=== PATIENT | male | born 1990 | race Caucasian/White ===

== ENCOUNTER 2017-05-20 10:32 | Emergency (ER) | payer SELFPAY ==
[~2017-05-20] VITALS: Ht 170.2 cm; Wt 78.6 kg
[2017-05-20 10:44] VITALS: TEMP 37.1; Ht 170.2 cm; Wt 78.6 kg
[2017-05-20] MEDS ORDERED: PRED20TA PO (11:11)
[2017-05-20 11:30] VITALS: BP 112/76; PULSE 97; O2SAT 98
--- NOTE | 2017-05-20 16:07 | EMERGENCY ROOM VISIT NOTE ---
History Report prepared by Erasto: Navya Glez Under the Supervision of: Dr. Rick Saenz M.D. First contact with patient: 11:00 Chief Complaint: ALLERGIC REACTION Stated Complaint: HIVES Nursing Triage Summary: triage note: pt reports "i have been having an allergic reaction to something since monday and today i have hives on my face." pt denies any shortness of breath, difficulty swallowing. pt reports taking no benedryl today. History of Present Illness The patient is a 27 year old male who presents to the Emergency Room with complaints of worsening hives starting 3 days ago. The hives started on his arms and then spread to his legs and feet and the rest of his body. Today he woke up and found that the hives had spread to his face. He has tried taking Benadryl and Claritin to no relief. He was recommended a steroid nasal spray today by the pharmacist which he tried to no relief. He is itchy. He has some possible lip swelling. He denies any fever. He denies any symptoms of hay fever like rhinorrhea, sneezing, or congestion. He denies any tongue swelling or throat swelling. He notes that 2 weeks ago he had poison amanuel on his left arm which resolved. The hives started afterwards. He has cats in the household which have been there for a long time. He denies having any unusual foods or seafood. He might have had some peanuts, but has not had any trouble with peanuts before. He denies any new medications recently. Source of History: patient Onset: 3 days ago Position: other (skin) Quality: other (hives) Timing: worsening Associated Symptoms: No fevers Note: Pt reports lip swelling. Pt denies rhinorrhea, sneezing, congestion, tongue swelling, throat swelling. Review of Systems See HPI for pertinent positives & negatives. A total of 10 systems reviewed and were otherwise negative. Past Medical & Surgical Medical Problems: (1) Hernia Family History Cancer Social History Smoking Status: Current Every Day Smoker Alcohol Use: occasionally Marital Status: single Current/Historical Medications Scheduled Prednisone (Prednisone), 0 PO DAILY Allergies Coded Allergies: Clindamycin (Verified Allergy, Unknown, rash, 05/20/17) patient Physical Exam Vital Signs Date Time Temp Pulse Resp B/P (MAP) Pulse Ox O2 Delivery O2 Flow Rate FiO2 05/20/17 11:30 97 17 112/76 98 8/19/17 10:44 37.1 100 18 118/72 99 Room Air 05/20/17 10:44 98 Room Air Physical Exam Constitutional: Vital signs reviewed. Eyes: Pupils are equal round reactive to light. Conjunctiva are noninjected. ENT: Pharynx is clear without erythema or exudate. Mucous membranes are moist. Neck supple without meningeal signs. No glottic swelling or uvular swelling. Respiratory: Clear to auscultation bilaterally. Breath sounds are equal bilaterally. No wheezing or stridor. Cardiovascular: Regular rate and rhythm. No rubs or gallops. GI: Soft, nondistended and nontender. Bowel sounds are present. Musculoskeletal: No peripheral edema. No lower extremity tenderness. Integumentary: Diffuse urticaria throughout the body without any specific distribution. No vesicles or bullae. Neurological: The patient is awake and alert. No focal deficits. Psychiatric: Normal affect. Medical Decision & Procedures Medications Administered Medications (Trade) Dose Ordered Sig/Kana Route Start Time Stop Time Status Last Admin Dose Admin Prednisone (PredniSONE TAB) 60 mg NOW STAT PO 05/20/17 11:10 05/20/17 11:11 DC 05/20/17 11:22 60 MG ED Course 1103: The patient was evaluated in room B7. A complete history and physical exam was performed. 1110: Prednisone 60 mg PO. 1115: I reevaluated the patient. I discussed tonight's findings with him. He verbalized agreement of the treatment plan. He was discharged home. Medical Decision This is a 27-year-old male who presents with a rash. Differential diagnosis includes urticaria, allergic reaction, erythema multiforme, environmental allergy. I did perform a limited focused review of portions of the patient's old chart on the electronic medical record. The patient has had no recent pertinent visits to this hospital. I did evaluate the patient as noted above. The patient is presenting with what appears to be diffusely urticaria to his body. No allergen is identified. He has no airway involvement or angioedema. I did recommend a course of steroids as well as follow up with an manager pediatric. Also also recommended that he continue antihistamines. He was discharged with a prescription for prednisone. He was discharged in good condition with return instructions as outlined below. Medication Reconcilliation Current Medication List: was personally reviewed by me Blood Pressure Screening Patient's blood pressure: Normal blood pressure Blood pressure disposition: Did not require urgent referral Impression Primary Impression: Urticaria Scribe Attestation The scribe's documentation has been prepared under my direct and personally reviewed by me in its entirety. I confirm that the note above accurately reflects all work, treatment, procedures, and medical decision making performed by me. Departure Information Dispostion Home / Self-Care Prescriptions Prednisone (Prednisone) 20 Mg Tab 0 PO DAILY, #18 TAB 3 DAILY FOR 3 DAYS, THEN 2 DAILY FOR 3 DAYS, THEN 1 DAILY FOR 3 DAYS. Prov: Rick Saenz M.D. 05/20/17 Referrals No Doctor, Assigned (PCP) Forms HOME CARE DOCUMENTATION FORM, IMPORTANT VISIT INFORMATION Patient Instructions ED Urticaria, My [facility] Additional Instructions You have been examined and treated today on an emergency basis only. This is not a substitute for, or an effort to provide, complete comprehensive medical care. It is impossible to recognize and treat all injuries or illnesses in a single emergency department visit. It is therefore important that you follow up closely with an manager pediatric for skin testing. Call as soon as possible for an appointment. Return for worsening symptoms or if you develop fever, trouble breathing, swelling to your tongue or throat or any other concerning symptoms. Continue antihistamines at home. Start prednisone tomorrow as you are given your first dose in the ED.
== END 2017-05-20 11:25 | disposition home or self-care (01) ==
LOC: C.EDB 10:33
DX: L50.9 Urticaria, unspecified (principal); F17.200 Nicotine dependence, unspecified, uncomplicated; Z88.8 Allergy status to other drugs, medicaments and biological substances; Z80.9 Family history of malignant neoplasm, unspecified

== ENCOUNTER 2024-09-02 15:32 | Inpatient (IN) ==
[2024-09-02 16:23] LABS: Basophils # (auto) 0.06 K/uL (0.00-0.20); Basophils % (auto) 0.9 %; Eosinophils # (auto) 0.06 K/uL (0.00-0.50); Eosinophils % (auto) 0.9 %; Hematocrit (blood only) 45.4 % (42.0-52.0); Hemoglobin 15.9 g/dl (14.0-18.0); Immature Granulocytes # (auto) 0.02 K/uL (0.01-0.20); Immature Granulocytes % (auto) 0.3 %; Lymphocytes # (auto) 1.38 K/uL (1.20-3.40); Lymphocytes % (auto) 20.2 %; Mean Corpuscular Hemoglobin 30.8 pg (25.0-34.0); Mean Corpuscular Volume 87.8 fL (80.0-100.0); Mean Platelet Volume 9.4 fL (9.4-12.4); Monocytes % (auto) 10.2 %; Neutrophils # (auto) 4.62 K/uL (1.40-6.50); Neutrophils % (auto) 67.5 %; Platelet Count 228 K/uL (130-400); RDW Coefficient of Variation 12.5 % (11.5-14.5); RDW Standard Deviation 40.4 fL (36.4-46.3); Red Blood Count 5.17 M/uL (4.70-6.10); White Blood Count 6.84 K/ul (4.8-10.8)
[2024-09-02] MEDS: LIDOCAINE 2% LOCAL 50 ML VIAL ONE (16:29)
[2024-09-02 16:48] LABS: Albumin Level 5.1 gm/dl (3.4-5.0); Bilirubin,Total 0.8 mg/dl (0.2-1.0); Calcium 10.2 mg/dl (8.6-10.3); Potassium 3.8 mmol/L (3.5-5.1)
[2024-09-02 16:54] LABS: Albumin Globulin Ratio 1.9 (0.9-2); BUN Creatinine Ratio 13.7 (10-20); Creatinine Clr Calc Pharmacy 96.3 ml/min; Globulin 2.7 gm/dl (2.5-4.0); Total Protein 7.8 gm/dl (6.0-8.3)
[2024-09-02] MEDS: fentaNYL citrate PF 100 MCG/2 ML VIAL IV STA (17:00)
--- NOTE | 2024-09-02 17:21 | History & Physical Report ---
Date of Service September 02, 2024 Assessment & Plan (1) Pneumothorax: Plan: Patient with no significant PMHx - presented with dyspnea on exertion and chest pain x 4 days Etiology unclear CXR showed large right pneumothorax with associated right lung collapse and mild leftward mediastinal shift, RUL opacity with unclear etiology (pulm contusion vs infectious vs loculated effusion) Chest tube placed in ED by Dr. Davis - 10 cmH2O suction Consult pulmonology - defer repeat imaging to pulm, will likely need chest CT - outpatient PFTs and exhaled nitric oxide testing Pain management prn - Tylenol, Toradol, oxycodone Wean O2 as tolerated - maintain saturations above 95% Admit to PCU - will defer antibiotic use at this time given afebrile, denies upper respiratory symptoms, no leukocytosis (2) Dyspnea: Plan: Secondary to above improving - see tx above (3) Current cannabis vaping on some days: Plan: smokes cannabis 1-2 days per months encourage smoking cessation Plan VTE ppx: SCDs Diet: regular Code status: full code Dispo: PCU Admission and Anticipated Discharge Date Admission Date: 09/02/24 History of Present Illness Chief Complaint: abnormal labs Primary Care Provider: NO PCP Patient is a 34-year-old male with no significant past medical history. He presents today from urgent care due to an abnormal diagnostic test, CXR showing pneumothorax. He stated that since Thanksgi he has had fatigue, cough, dyspnea on exertion, dizziness, and feels like his "chest is on fire". He has been taking ibuprofen for the chest pain. He stated that the pain was on the right side and moved midsternally. He also had right arm numbness a few days ago, but that has since subsided. When he went to work today, he felt he could not do anything because the shortness of breath was so severe. The patient stated that he would have episodes of shortness of breath on exertion, which then caused him to have a cough and fatigue. He stated that his fiance and her child have both been diagnosed with pneumonia recently. Patient denies fevers, rhinorrhea, sore throat, abdominal pain, nausea, vomiting, diarrhea, constipation. He denies previous tobacco history, occasionally smokes cannabis 1-2 times per month. He denies previous pulmonary conditions, denies cystic fibrosis, asthma, COPD. He denies past history of DM, cancer, previous VTE, arrhythmias. He does not take any medications at home other than a daily multivitamin. He does not use oxygen at baseline. Allergies Allergy/AdvReac Type Severity Reaction Status Date / Time clindamycin Allergy Unknown rash Verified 09/02/24 18:44 Home Medications Medication Instructions Recorded Confirmed Type ibuprofen 200 mg tablet 200 mg PO Q6H PRN Pain/Fever 09/02/24 09/02/24 History multivitamin 1 tab PO DAILY 09/02/24 09/02/24 History Past Med/Surg History Problem List (Updated 09/02/24 @ 18:02 by Henrietta Rosa PA-C) Dyspnea Chest x-ray abnormality Current cannabis vaping on some days Spontaneous pneumothorax Shortness of breath (Acute) Pneumothorax (Acute) Urticaria (Acute) Surgical History H/O hernia repair Social History Smoking Status: Current some day smoker Tobacco Type: E-cigarettes / Vaping Second Hand Exposure: No; Do You Dip or Chew Tobacco: No; Hx Alcohol Use: Yes Hx Substance Use: Yes Preferred Language: Luxembourgish Communication Ability: Effective Block Breaker Required: No Beliefs That Will Affect Care: None Current Living Situation: Significant Other Current Living Situation Comment: with fiance Other Information That Helps Us Care for You: No Feels Safe at Home: Yes Safety Concerns: Feels Safe At This Time Assistive Devices: None Review of Systems Review of Systems: see HPI Physical Exam Physical Exam: The patient is awake, alert and oriented 3, well developed and well nourished, normocephalic and atraumatic, in no acute distress. Non-toxic appearing. HEENT- EOMI, mucous membranes moist. Hearing grossly intact. Heart- normal S1 and S2. No murmurs, rubs or gallops. Lungs- decreased bilaterally. Chest tube in place. No respiratory distress. 6L O2 via nasal canula. Abdomen- normal bowel sounds and soft. No ascites noted. Non-tender. Extremities- no clubbing, cyanosis, or edema. Rheumatologic- normal range of motion. Psychiatric- normal affect. Results & Data Results & Data Vital Signs (Past 12 Hours) Vital Signs Temp Pulse Pulse Resp BP BP Pulse Ox 09/02/24 16:40 100 09/02/24 16:31 79 20 131/94 100 09/02/24 16:27 90 09/02/24 16:08 85 26 H 91 09/02/24 15:52 93 H 21 145/104 H 91 09/02/24 15:34 37 C 104 H 22 134/85 91 O2 Del Method O2 Flow Rate 09/02/24 16:40 Nasal Cannula, Non-rebreather 15 09/02/24 16:31 Non-rebreather 15 09/02/24 16:27 Room Air, Non-rebreather 0 09/02/24 16:08 Room Air 09/02/24 15:52 Room Air 09/02/24 15:34 Room Air Code Status & VTE Plan Code Status full code VTE Prophylaxis Plan VTE Prophylaxis will be ordered: Yes Supervising Physician Co-Signing Physician Notes I personally saw and examined the patient. I independently reviewed the labs, EKG, imaging, problem list, medication list, past medical history and family history. I verified all damian points and agree with Henrietta Rosa PA-C with the following exceptions and/or additions: 34 year old presents to the ER with known pneumothorax. Pulmonology already performed tube thoracostomy when seen. Pain on inspiration and movement. O/E HS RRR, no murmurs, posterior crackles on right side, no wheezing, Abdo SNT A/P Pneumothorax - appreciate pulmonology management of this, repeat imaging per pulmonology, pain medications - acetaminophen 1st line, toradol 2nd line, oxycodone 3rd line, morphine 4th line or unable to take PO meds Abnormal CXR - concerning opacity in right lung, consider CT chest, suspect most likely compressed lung, no need for antibiotics at this time PG Care Time/CCT Total # of Minutes Spent Total Time Spent with Patient: Total time spent is greater than 50% in coordination of care (as documented) at patient's floor/unit and/or counseling patient: Coding Level of Care Code 53884 INT INP/OBS CARE 2/55MIN Diagnoses Pneumothorax J93.9 Dyspnea R06.00 Current cannabis vaping on some days F12.90
[2024-09-02] MEDS: ACETAMINOPHEN 325 MG TAB PO STA (17:28)
[2024-09-02] MEDS: KETOROLAC TROMETHAMINE 15 MG/ML VIAL IV ONE (17:29)
--- NOTE | 2024-09-02 17:34 | XRay Report ---
INDICATION: Chest tube. TECHNIQUE: Frontal radiograph of the chest. COMPARISON: None provided. FINDINGS/IMPRESSION: The cardiomediastinal silhouette and pulmonary vasculature appear within normal limits. Right upper lobe opacity. Subsegmental atelectasis in the left lower lobe. No pleural effusion. No acute osseous abnormality evident. Small right apical pneumothorax, less than 15 % volume. Right-sided chest tube overlies the right upper medial thorax. Electronically signed by Hector Beckford 09-02-2024 5:33 PM
--- NOTE | 2024-09-02 17:40 | Emergency Department Note ---
Impression & Plan Pneumothorax, Shortness of breath ED Provider Note NAME: SHIRA PAULINO AGE: 34 SEX: M : 1990 ARRIVES VIA: Walk-In INFORMANT: Patient ED PROVIDER(S): Jaspreet Thrasher DO CHIEF COMPLAINT: chest pain HPI: Patient is a 34-year-old male who presents to the ER for right-sided chest pain which started on Thanksgiving. He admits to shortness of breath. He was seen at urgent care and referred in due to a pneumothorax. He denies any belly pain nausea vomiting or diarrhea. He notes shortness of breath got worse today although in the morning he was feeling the best that he has felt over the past couple days. He denies any recent trauma. No fevers. ADDITIONAL HISTORY OBTAINED: Per HPI Chronic Medical/Social Conditions Affecting Care: Per HPI PAST MEDICAL HISTORY:See Below PAST SURGICAL HISTORY:See Below FAMILY HISTORY:See Below SOCIAL HISTORY:See Below HOME MEDICATIONS:See Below ALLERGIES:See Below VITALS:See Below PHYSICAL EXAMINATION: GENERAL: Sitting up in bed, alert, well appearing, well nourished, no distress, non-toxic EYE EXAM: normal conjunctiva. OROPHARYNX: mucous membranes are moist LUNGS: Diminished breath sounds on the right. Normal chest wall mechanics HEART: no murmurs, S1 normal and S2 normal ABDOMEN: abdomen soft, non-tender, normo-active bowel sounds, no masses, no rebound or guarding. UPPER EXTREMITIES: upper extremities are grossly normal. LOWER EXTREMITIES: No pitting edema. NEURO EXAM: Normal sensorium, cranial nerves II-XII grossly intact, normal speech, no gross weakness of arms, no gross weakness of legs. MEDICAL DECISION MAKING: Patient is a 34-year-old male who presents ER for the above-stated complaint. External records were reviewed in regards to a chest x-ray performed earlier today at [facility] which showed a large right-sided pneumothorax. I discussed the case with pulmonology who reviewed the images and agreed that he needed a chest tube. They elected to place a chest tube. Please see their notes for further details. Patient was placed on a nonrebreather after initial evaluation due to the large right-sided pneumothorax. Patient was discussed with the hospitalist after placement of chest tube and chest x-ray which shows significant improvement of the pneumothorax. Consults/Care Managements Discussions: Per [facility] Triage Nursing notes reviewed. Limited review of prior medical records performed Vital Signs: reviewed and remarkable for no significant abnormalities Differential diagnosis: Cardiac ischemia, aortic dissection, pulmonary embolism, pneumothorax, pneumonia, pericarditis, myocarditis, esophageal rupture, GERD, cholecystitis, pancreatitis, musculoskeletal, as well as other pathologies. ER treatment provided: See below Diagnostics interpreted by me include EKG and cardiac monitoring as listed below: -Cardiac Monitoring: An order was placed for continuous cardiac monitoring. The monitor shows a rate of 70 with sinus rhythm. -ECG: none -Laboratory studies:Interpreted by me as stated above in MDM and shown below. Imaging studies: Xrays: As interpreted by me: Portable AP upright 1 view of the chest shows chest tube located in right side chest CTs show: none Procedures:none Critical Care: I have personally spent 35 minutes of critical care time in the direct management of this patient. This includes bedside care, interpretation of diagnostic studies, and testing, discussion with consultants, patient, and family members, and other required patient management activities. This 35 minutes is in excess of all separately billable procedures. Past Med/Surg History Problem List (Updated 09/02/24 @ 17:40 by Jaspreet Thrasher DO) Shortness of breath (Acute) Pneumothorax (Acute) Urticaria (Acute) Surgical History (Updated 09/02/24 @ 12:08 by Estelle Helm LPN) H/O hernia repair Social History (Updated 09/02/24 @ 12:08 by Estelle Helm LPN) Smoking Status: Former smoker Preferred Language: Zimbabwean Feels Safe at Home: Yes Allergies Allergies Allergy/AdvReac Type Severity Reaction Status Date / Time clindamycin Allergy Unknown rash Verified 09/02/24 12:07 Home Meds Home Medications Medication Instructions Recorded Confirmed No Known Home Medications 09/02/24 09/02/24 Results & Data (ED) Vital Signs Vital Signs - 24 hr 09/02/24 15:34 09/02/24 15:52 09/02/24 16:08 Temperature 37 C Temperature Source Skin Pulse Rate 104 H 85 Pulse Rate [Apical] 93 H Pulse Rhythm Regular Pulse Rhythm [Apical] Pulse Strength [Apical] Respiratory Rate 22 21 26 H Respiratory Effort / Characteristics Short of Breath Non-Labored Spontaneous Respiratory Depth Normal Normal Respiratory Pattern Regular Blood Pressure 134/85 Blood Pressure [Right Arm] 145/104 H Blood Pressure Mean 101 Blood Pressure Mean [Right Arm] 117 Blood Pressure Position [Right Arm] Pulse Oximetry 91 91 91 Oxygen Delivery Method Room Air Room Air Room Air Oxygen Flow Rate Sepsis Recent Fever Within 48 Hours No Sepsis New/Unexplained Change in Mental Status N/A Sepsis Action Taken by Nursing No Action Required Oxygen Flow Rate - Titration Pulse Oximetry Post Tiitration 09/02/24 16:27 09/02/24 16:31 09/02/24 16:40 Temperature Temperature Source Pulse Rate Pulse Rate [Apical] 79 Pulse Rhythm Pulse Rhythm [Apical] Regular Pulse Strength [Apical] Normal Respiratory Rate 20 Respiratory Effort / Characteristics Non-Labored Respiratory Depth Normal Respiratory Pattern Regular Blood Pressure Blood Pressure [Right Arm] 131/94 Blood Pressure Mean Blood Pressure Mean [Right Arm] 106 Blood Pressure Position [Right Arm] Lying Pulse Oximetry 90 100 100 Oxygen Delivery Method Room Air Non-rebreather Non-rebreather Nasal Cannula Non-rebreather Oxygen Flow Rate 0 15 15 Sepsis Recent Fever Within 48 Hours Sepsis New/Unexplained Change in Mental Status Sepsis Action Taken by Nursing Oxygen Flow Rate - Titration 15 6 Pulse Oximetry Post Tiitration 100 100 09/02/24 17:23 Temperature Temperature Source Pulse Rate Pulse Rate [Apical] 65 Pulse Rhythm Pulse Rhythm [Apical] Regular Pulse Strength [Apical] Normal Respiratory Rate 17 Respiratory Effort / Characteristics Non-Labored Respiratory Depth Normal Respiratory Pattern Regular Blood Pressure Blood Pressure [Right Arm] 124/104 H Blood Pressure Mean Blood Pressure Mean [Right Arm] 110 Blood Pressure Position [Right Arm] Lying Pulse Oximetry 99 Oxygen Delivery Method Nasal Cannula Oxygen Flow Rate 6 Sepsis Recent Fever Within 48 Hours Sepsis New/Unexplained Change in Mental Status Sepsis Action Taken by Nursing Oxygen Flow Rate - Titration Pulse Oximetry Post Tiitration Laboratory Data 09/02/24 15:48 09/02/24 15:48 Lab Results 09/02/24 Range/Units 15:48 WBC 6.84 (4.8-10.8) K/ul RBC 5.17 (4.70-6.10) M/uL Hgb 15.9 (14.0-18.0) g/dl Hct 45.4 (42.0-52.0) % MCV 87.8 (80.0-100.0) fL MCH 30.8 (25.0-34.0) pg MCHC 35.0 (32.0-36.0) g/dL RDW Std Deviation 40.4 (36.4-46.3) fL RDW Coeff of Ed 12.5 (11.5-14.5) % Plt Count 228 (130-400) K/uL MPV 9.4 (9.4-12.4) fL Immature Gran % (Auto) 0.3 % Neut % (Auto) 67.5 % Lymph % (Auto) 20.2 % [place] % (Auto) 10.2 % Eos % (Auto) 0.9 % Baso % (Auto) 0.9 % Neut # (Auto) 4.62 (1.40-6.50) K/uL Lymph # (Auto) 1.38 (1.20-3.40) K/uL [place] # (Auto) 0.70 H (0.11-0.59) K/uL Eos # (Auto) 0.06 (0.00-0.50) K/uL Baso # (Auto) 0.06 (0.00-0.20) K/uL Immature Gran # (Auto) 0.02 (0.01-0.20) K/uL Sodium 138 (136-145) mmol/L Potassium 3.8 (3.5-5.1) mmol/L Chloride 103 (98-107) mmol/L Carbon Dioxide 26 (21-32) mmol/L Anion Gap 9 (3-11) BUN 14 (6-23) mg/dl Creatinine 1.02 (0.6-1.4) mg/dl Est Cr Clr Drug Dosing 96.3 ml/min eGFR 99.52 BUN/Creatinine Ratio 13.7 (10-20) Glucose 96 (70-99(Fasting)) mg/dl Calcium 10.2 (8.6-10.3) mg/dl Total Bilirubin 0.8 (0.2-1.0) mg/dl AST 21 (13-39) U/L ALT 17 (7-52) U/L Alkaline Phosphatase 67 (34-104) U/L Total Protein 7.8 (6.0-8.3) gm/dl Albumin 5.1 H (3.4-5.0) gm/dl Globulin 2.7 (2.5-4.0) gm/dl Albumin/Globulin Ratio 1.9 (0.9-2) Administered Medications Discontinued Medications Acetaminophen (Acetaminophen 325 Mg Tab) 650 mg PO NOW STA Stop: 09/02/24 17:25 Last Admin: 09/02/24 17:28 Dose: 650 mg Documented By: KIMBERLEY Ketorolac Tromethamine (Ketorolac Tromethamine 15 Mg/Ml Vial) 15 mg IV NOW ONE Stop: 09/02/24 17:25 Last Admin: 09/02/24 17:29 Dose: 15 mg Documented By: KIMBERLEY Lidocaine HCl (Lidocaine 2% Local 50 Ml Vial) Confirm Administered Dose 50 ml .ROUTE .STK-MED ONE Stop: 09/02/24 16:25 Last Admin: 09/02/24 16:29 Dose: Not Given Documented By: KIMBERLEY Imaging Data Radiologist's Impression: Chest X-Ray 09/02/24 17:03 INDICATION: Chest tube. TECHNIQUE: Frontal radiograph of the chest. COMPARISON: None provided. FINDINGS/IMPRESSION: The cardiomediastinal silhouette and pulmonary vasculature appear within normal limits. Right upper lobe opacity. Subsegmental atelectasis in the left lower lobe. No pleural effusion. No acute osseous abnormality evident. Small right apical pneumothorax, less than 15 % volume. Right-sided chest tube overlies the right upper medial thorax. Electronically signed by Hector Beckford 09-02-2024 5:33 PM Discharge Plan Visit Data Chief Complaint: Abnormal Labs/Diagnostic Testing Stated Complaint: COLLASPED LUNG, HAD CHEST X-RAY, SOME CHEST PAIN ED Provider: Jaspreet Thrasher Discharge Problem: Pneumothorax, Shortness of breath Forms Stand Alone Forms: My [facility] [employer] Prescriptions Prescriptions: No Action No Known Home Medications Referrals Referrals: PCP,NO [Primary Care Provider] - Discharge Problem: Pneumothorax Qualifiers: Pneumothorax type: unspecified pneumothorax Qualified Code(s): J93.9 - Pneumothorax, unspecified
[2024-09-02] MEDS: LIDOCAINE 1% LOCAL 20 ML VIAL ONE (17:41)
[2024-09-02] MEDS: fentaNYL citrate PF 100 MCG/2 ML VIAL ONE (17:44)
--- NOTE | 2024-09-02 17:50 | Pulmonary Consultation ---
Date of Consultation September 02, 2024 Assessment & Plan (1) Spontaneous pneumothorax: Etiology of spontaneous pneumothorax unclear. Will need a CT of his chest to evaluate for congenital blebs or emphysema. He does have a right upper lobe opacity of unclear etiology which may be related to pulmonary contusion versus infectious etiology or other process such as a loculated effusion. Will order follow-up chest x-ray and if still persistent, then a CT of his chest. Low threshold for antibiotics given opacity seen. Would also benefit from outpatient PFTs and exhaled nitric oxide testing to rule out obstructive lung disease. (2) Shortness of breath: Shortness of breath resolving with evacuation of the pneumothorax. Continue to wean supplemental oxygen to maintain saturations above 95%. (3) Current cannabis vaping on some days: Vaping cessation strongly encouraged. (4) Chest x-ray abnormality: Plan Pulmonary will continue to follow. Thank you for the consult. History of Present Illness Reason for Consultation: Large right-sided pneumothorax History of Present Illness 34-year-old male with no significant past medical history aside for vaping marijuana on occasion presenting to the hospital due to ongoing shortness of breath and chest pain since of last week. Patient relates that over the past 2 days his chest discomfort and shortness of breath have gotten worse. He went to work was not able to do the activities he is able to normally do. He denies any chest trauma. Denies any history of tobacco abuse. He does vape on occasion and notes that he vape last week. He was feeling his usual self prior to and denied any upper respiratory symptoms. Denies any history of lung disease, cough, fevers, chills or night sweats. Allergies Allergy/AdvReac Type Severity Reaction Status Date / Time clindamycin Allergy Unknown rash Verified 09/02/24 12:07 Home Medications Medication Instructions Recorded Confirmed Type No Known Home Medications 09/02/24 09/02/24 History Patient History Surgical History (Updated 09/02/24 @ 12:08 by Estelle Helm LPN) H/O hernia repair Social History (Updated 09/02/24 @ 12:08 by Estelle Helm LPN) Smoking Status: Former smoker Preferred Language: Irish Feels Safe at Home: Yes Review of Systems Review of Systems: All systems reviewed & are unremarkable except as noted in HPI & below Physical Exam Physical Exam: Constitutional: Patient appears to be of their stated age. Mildly distressed. Nonrebreather in place. Tachypneic. Eyes: Pupils are equal round and reactive to light. Conjunctivae are normal. Anicteric sclera. Ears nose, mouth and throat: Mallampati class 1. Normal posterior oropharynx. Uvula is midline. Neck: Trachea is midline. Visual inspection is normal. Respiratory: Diminished lung sounds on the right with mild tachypnea. No wheezes or rails. Cardiovascular: Regular rate and rhythm. No murmurs. No edema. Gastrointestinal: Normal bowel sounds, soft, nontender and nondistended. No hepatosplenomegaly noted. Musculoskeletal: No cyanosis. Patient is able to move all extremities. Strength is 5 out of 5 in the upper and lower extremities. Skin: No rashes, warm dry and intact. Neurologic: No obvious focal neurological deficits seen. Psychiatric: Alert and oriented x3 with a euthymic affect. Results & Data Results & Data Vital Signs (Past 12 Hours) Vital Signs Temp Pulse Pulse Resp BP BP Pulse Ox 09/02/24 17:23 65 17 124/104 H 99 09/02/24 16:40 100 09/02/24 16:31 79 20 131/94 100 09/02/24 16:27 90 09/02/24 16:08 85 26 H 91 09/02/24 15:52 93 H 21 145/104 H 91 09/02/24 15:34 37 C 104 H 22 134/85 91 O2 Del Method O2 Flow Rate 09/02/24 17:23 Nasal Cannula 6 09/02/24 16:40 Nasal Cannula, Non-rebreather 15 09/02/24 16:31 Non-rebreather 15 09/02/24 16:27 Room Air, Non-rebreather 0 09/02/24 16:08 Room Air 09/02/24 15:52 Room Air 09/02/24 15:34 Room Air PG Care Time/CCT Total # of Minutes Spent Total Time Spent with Patient: Total time spent is greater than 50% in coordination of care (as documented) at patient's floor/unit and/or counseling patient: Coding Level of Care Code 59583 IN/OBS CONSULT LVL 4,60M Diagnoses Spontaneous pneumothorax J93.83 Shortness of breath R06.02 Current cannabis vaping on some days F12.90 Chest x-ray abnormality R93.89
--- NOTE | 2024-09-02 17:54 | Procedure Note ---
Procedure Note Date of Service September 02, 2024 Pneumothorax Arrow catheter 8.5 Cymro in the right chest: Procedure: Thorax Arrow catheter measuring 8.5 Cymro in the right chest Indication: Large pneumothorax on the right Anesthesia: 8 mL lidocaine 1% Written consent was obtained and placed on the chart. Timeout was done prior to the procedure. Prior to procedure, chest x-ray films were reviewed by myself and demonstrated a large pneumothorax. Pleural ultrasound was utilized to find a lung point. A time-out was completed verifying correct patient, procedure, site, positioning, and implant(s) or special equipment if applicable. Utilizing bedside ultrasound, chest wall was evaluated for location for optimal chest tube placement. Location between the second and third ribs were marked on the skin using gentle pressure. The right sided chest wall was prepped with chlorhexidine and draped in the t ypical sterile fashion. 8 mL of 1% Lidocaine without epinephrine was used to anesthetize the skin down to the dorsal surface of the second rib. Air return confirmed entry into the pleural space. Lidocaine was injected into the pleural space for increased anesthetization. Introducer needle on syringe was inserted in perpendicular fashion taking care to ride just above the dorsal surface of the third rib. Entry into the pleural space was heralded by air return into the syringe while under gentle aspiration. A catheter over the needle apparatus was utilized to insert the catheter into the pleural space. Cath was immediately connected to pre-prepared NADIR pleur-evac system. Pigtail was sutured securely in place and sterile dressing was applied. Chest tube was placed to -10 cmH2O suction. Patient tolerated procedure well. Blood Loss: Minimal Complications: None Post procedure Chest X-ray was ordered and reviewed by myself which demonstrated adequate placement, but with some mild coiling. Additionally seen was an incidental right upper lobe opacity. Catheter appears to be functioning well with good pleural variation. [facility] [place] [facility] [place] Codes (Charges) Pulmonary/Thoracic Procedure 1: Pulmonary and Thoracic: 96316 Tube thoracostomy Coding CPT Codes Pulmonary/Thoracic - Pulmonary and Thoracic: 68854 Tube thoracostomy ([id number]) Additional Codes Date of Service ([facility].SURGERY)
--- NOTE | 2024-09-02 18:18 | XRay Report ---
INDICATION: Chest tube. TECHNIQUE: One view of the chest. COMPARISON: Radiograph from earlier today. FINDINGS/IMPRESSION: Right-sided chest tube overlies the right hemithorax. Near complete resolution of right pneumothorax. Improved aeration of right upper lobe opacity. Bilateral lower lobe subsegmental atelectasis. No pleural effusion. No acute fracture. Electronically signed by Hector Beckford 09-02-2024 6:17 PM
[2024-09-02] MEDS ORDERED: KETOROLAC TROMETHAMINE 15 MG/ML VIAL IV PRN (20:35)
[2024-09-02] MEDS ORDERED: DOCUSATE SODIUM 100 MG CAP PO PRN (20:35)
[2024-09-02] MEDS ORDERED: ACETAMINOPHEN 325 MG TAB PO PRN (20:35)
[2024-09-02] MEDS ORDERED: MoRPHine SULFATE 2 MG/ML CARP IV PRN (22:11)
[2024-09-02] MEDS ORDERED: oxyCODONE HCL IR 5 MG TAB (IMMEDIATE RELEASE) PO PRN (22:11)
[2024-09-02] MEDS: oxyCODONE HCL IR 5 MG TAB (IMMEDIATE RELEASE) PO PRN (22:11)
[2024-09-02] MEDS ORDERED: MoRPHine SULFATE 4 MG/ML 1 ML CARP\\VIAL IV PRN (22:11)
[2024-09-03] MEDS: oxyCODONE HCL IR 5 MG TAB (IMMEDIATE RELEASE) PO PRN (05:51)
[2024-09-03 07:56] LABS: Basophils # (auto) 0.06 K/uL (0.00-0.20); Basophils % (auto) 0.9 %; Eosinophils # (auto) 0.14 K/uL (0.00-0.50); Eosinophils % (auto) 2.1 %; Hematocrit (blood only) 42.9 % (42.0-52.0); Hemoglobin 14.8 g/dl (14.0-18.0); Immature Granulocytes # (auto) 0.02 K/uL (0.01-0.20); Immature Granulocytes % (auto) 0.3 %; Lymphocytes # (auto) 1.64 K/uL (1.20-3.40); Mean Corpuscular Hemoglobin 30.9 pg (25.0-34.0); Mean Corpuscular Hgb Conc 34.5 g/dL (32.0-36.0); Mean Corpuscular Volume 89.6 fL (80.0-100.0); Mean Platelet Volume 9.5 fL (9.4-12.4); Monocytes % (auto) 15.2 %; Neutrophils # (auto) 3.71 K/uL (1.40-6.50); Neutrophils % (auto) 56.5 %; Platelet Count 217 K/uL (130-400); RDW Coefficient of Variation 12.5 % (11.5-14.5); RDW Standard Deviation 41.4 fL (36.4-46.3); Red Blood Count 4.79 M/uL (4.70-6.10); White Blood Count 6.57 K/ul (4.8-10.8)
[2024-09-03 08:15] LABS: BUN Creatinine Ratio 13.9 (10-20); Calcium 9.5 mg/dl (8.6-10.3); Magnesium 2.1 mg/dl (1.7-2.4); Potassium 4.2 mmol/L (3.5-5.1)
--- NOTE | 2024-09-03 08:21 | XRay Report ---
EXAM: XR chest 1V portable CLINICAL HISTORY: ptx tgb/kaa TECHNIQUE: An X-ray image of the chest is obtained in AP projection. COMPARISON: 09/02/2024. FINDINGS: Pulmonary Parenchyma: Lungs are clear bilaterally. No evidence of consolidation, collapse, or focal opacities. No pulmonary nodules are identified. Previously seen air space opacities the right mid zone are not visualized. A tube is seen overlying the right hemithorax, needs clinical correlation No evidence of pleural effusion or pleural thickening. Heart and Mediastinum: Heart size and shape are normal. No mediastinal widening or masses. No hilar or mediastinal lymphadenopathy. Bony Thorax: Bony thorax appears intact without fractures or deformities. Soft Tissues: Soft tissues overlying the chest wall are unremarkable. IMPRESSION: 1. No acute cardiopulmonary abnormalities are identified. 2. Previously seen air space opacities the right mid zone are not visualized in the current study. 3. Interval improvement. 4. A tube is seen overlying the right hemithorax and needs clinical correlation Electronically signed by Marvel Cardenas 09-03-2024 08:21 AM
--- NOTE | 2024-09-03 09:12 | Pulmonology Progress Note ---
Date of Service September 03, 2024 Assessment & Plan (1) Spontaneous pneumothorax: Plan: Etiology of spontaneous pneumothorax unclear. Will need a CT of his chest to evaluate for congenital blebs or emphysema. He does have a right upper lobe opacity of unclear etiology which may be related to pulmonary contusion versus infectious etiology or other process such as a loculated effusion. Will order follow-up chest x-ray and if still persistent, then a CT of his chest. Low threshold for antibiotics given opacity seen. Would also benefit from outpatient PFTs and exhaled nitric oxide testing to rule out obstructive lung disease. (2) Shortness of breath: Plan: Shortness of breath resolving with evacuation of the pneumothorax. Continue to wean supplemental oxygen to maintain saturations above 95%. (3) Current cannabis vaping on some days: Plan: Vaping cessation strongly encouraged. (4) Chest x-ray abnormality: Plan Pulmonary will continue to follow. Thank you for the consult. Admission and Anticipated Discharge Date Admission Date: September 02, 2024 Results & Data Results & Data Vital Signs (Past 12 Hours) Vital Signs Temp Pulse Pulse Resp BP Pulse Ox O2 Del Method 09/03/24 07:30 54 L 09/03/24 07:24 36.8 C 68 18 121/77 98 Room Air 09/03/24 03:41 36.6 C 60 18 113/78 95 Room Air 09/03/24 00:14 62 09/02/24 22:57 36.5 C 61 16 110/74 95 Room Air PG Care Time/CCT Total # of Minutes Spent Total Time Spent with Patient: Total time spent is greater than 50% in coordination of care (as documented) at patient's floor/unit and/or counseling patient: Coding Diagnoses Spontaneous pneumothorax J93.83 Shortness of breath R06.02 Current cannabis vaping on some days F12.90 Chest x-ray abnormality R93.89
--- NOTE | 2024-09-03 09:14 | Hospitalist Progress Note ---
Date of Service September 03, 2024 Assessment & Plan (1) Pneumothorax: Plan: Patient with no significant PMHx - presented with dyspnea on exertion and chest pain x 4 days Etiology unclear CXR showed large right pneumothorax with associated right lung collapse and mild leftward mediastinal shift, RUL opacity with unclear etiology (pulm contusion vs infectious vs loculated effusion) Chest tube placed in ED by Dr. Davis - 10 cmH2O suction Consult pulmonology - Recommend outpatient chest CT to evaluate for congenital blebs or emphysema - Recommend outpatient PFTs and exhaled nitric oxide testing to rule out obstructive lung disease - Avoid strenuous activity for the next 4 weeks and avoid changes in barometric pressure Chest tube removed 09/[address] Davis Repeat CXR with resolved RUL opacity -- likely atelectasis; no antibiotics needed Pain management prn - Tylenol, Toradol, oxycodone Stable on room air - maintain saturations above 95% (2) Dyspnea: Plan: Secondary to above - Improving - see tx above (3) Current cannabis vaping on some days: Plan: Smokes cannabis 1-2 days per months Encourage smoking cessation Plan VTE PPx: SCDs CODE STATUS: Full code Admission and Anticipated Discharge Date Admission Date: September 02, 2024 Subjective Patient seen and evaluated at bedside. He reports some discomfort, but overall is feeling improved with his shortness of breath. He has some pain with deep inspiration. His PABLO is improved, though he has not ambulated too much today. He denies any infectious respiratory symptoms. He is to get a repeat CXR this afternoon. He notes that his appetite is still diminished. No additional complaints or concerns at this time. Physical Exam Physical Exam: General: No acute distress, nondiaphoretic, well-developed, well-nourished. Skin: The skin was without rashes, erythema, edema, or bruising. Cardiac: Regular rate and rhythm without murmurs gallops or rubs. Pulm: Clear to auscultation bilaterally without wheezes, rales or rhonchi. No respiratory distress. Normal respiratory effort. 96% on room air. Chest tube right chest wall. Abdominal: Soft, nontender, nondistended. Bowel sounds present. Neuro: A&O x3. No focal neurological deficits. Results & Data Results & Data Vital Signs (Past 12 Hours) Vital Signs Temp Pulse Pulse Resp BP Pulse Ox O2 Del Method 09/03/24 07:30 54 L 09/03/24 07:24 98.2 F 68 18 121/77 98 Room Air 09/03/24 03:41 97.9 F 60 18 113/78 95 Room Air 09/03/24 00:14 62 09/02/24 22:57 97.7 F 61 16 110/74 95 Room Air Laboratory Results Reviewed CBC Reviewed CMP Diagnostic Findings Reviewed CXRs PG Care Time/CCT Total # of Minutes Spent Total Time Spent with Patient: Total time spent is greater than 50% in coordination of care (as documented) at patient's floor/unit and/or counseling patient: Coding Level of Care Code 52034 SUB INP/OBS CARE 2/35MIN Diagnoses Pneumothorax J93.9 Pneumothorax type: unspecified pneumothorax Dyspnea R06.00 Current cannabis vaping on some days F12.90 (1) Pneumothorax Pneumothorax type: unspecified pneumothorax Qualified Code(s): J93.9 - Pneumothorax, unspecified
--- NOTE | 2024-09-03 13:05 | Procedure Note ---
Procedure Note Date of Service September 03, 2024 Chest tube removal I took the dressing down and cleaned the area with a ChloraPrep. I then removed the sutures from the thoracotomy site. The chest tube was removed upon exhalation. The chest tube was seen to be intact. An occlusive dressing was placed over the insertion site. [facility] [place] Procedure Codes (Charges) Pulmonary/Thoracic Procedure 1: Pulmonary and Thoracic: 78951 Remove lung catheter Coding CPT Codes Pulmonary/Thoracic - Pulmonary and Thoracic: 90496 Remove lung catheter ([id number]) Additional Codes Date of Service ([facility].SURGERY)
--- NOTE | 2024-09-03 13:10 | Pulmonology Progress Note ---
Date of Service September 03, 2024 Assessment & Plan (1) Spontaneous pneumothorax: Plan: Etiology of spontaneous pneumothorax unclear. Will need a CT of his chest to evaluate for congenital blebs or emphysema. This can be done as an outpatient. The opacity seen on chest x-ray yesterday has resolved. Likely atelectasis. Would also benefit from outpatient PFTs and exhaled nitric oxide testing to rule out obstructive lung disease. Chest tube removed today. Patient encouraged to avoid strenuous activity for the next 4 weeks and avoid changes in barometric pressure such as scuba diving, snorkeling or flying in an airplane. (2) Shortness of breath: Plan: Resolved. (3) Current cannabis vaping on some days: Plan: Vaping cessation strongly encouraged. (4) Chest x-ray abnormality: Plan: Resolved. Admission and Anticipated Discharge Date Admission Date: September 02, 2024 Subjective Patient seen and examined this morning. He has some mild chest pain at the site of the chest tube insertion site and mild pleurisy. Overall his dyspnea has improved. No fevers or chills. He was clamped for several hours and post clamping chest tube was reviewed without evidence of pneumothorax. Chest tube removed at bedside. Patient tolerated the procedure well. Review of Systems Review of Systems: All systems reviewed & are unremarkable except as noted in HPI & below Physical Exam Physical Exam: Constitutional: Patient appears to be of their stated age. Mildly distressed. Nonrebreather in place. Tachypneic. Eyes: Pupils are equal round and reactive to light. Conjunctivae are normal. Anicteric sclera. Ears nose, mouth and throat: Mallampati class 1. Normal posterior oropharynx. Uvula is midline. Neck: Trachea is midline. Visual inspection is normal. Respiratory: Clear lung jin bilaterally. No tachypnea. Cardiovascular: Regular rate and rhythm. No murmurs. No edema. Gastrointestinal: Normal bowel sounds, soft, nontender and nondistended. No hepatosplenomegaly noted. Musculoskeletal: No cyanosis. Patient is able to move all extremities. Strength is 5 out of 5 in the upper and lower extremities. Skin: No rashes, warm dry and intact. Chest tube insertion site clean, dry and intact. Neurologic: No obvious focal neurological deficits seen. Psychiatric: Alert and oriented x3 with a euthymic affect. Results & Data Results & Data Vital Signs (Past 12 Hours) Vital Signs Temp Pulse Pulse Resp BP Pulse Ox O2 Del Method 09/03/24 11:06 36.9 C 78 18 127/89 96 Room Air 09/03/24 07:30 54 L 09/03/24 07:24 36.8 C 68 18 121/77 98 Room Air 09/03/24 03:41 36.6 C 60 18 113/78 95 Room Air PG Care Time/CCT Total # of Minutes Spent Total Time Spent with Patient: Total time spent is greater than 50% in coordination of care (as documented) at patient's floor/unit and/or counseling patient: Coding Level of Care Code 35529 SUB INP/OBS CARE 2/35MIN Diagnoses Spontaneous pneumothorax J93.83 Shortness of breath R06.02 Current cannabis vaping on some days F12.90 Chest x-ray abnormality R93.89
--- NOTE | 2024-09-03 13:50 | XRay Report ---
XR chest 1V portable CLINICAL HISTORY: follow up, chest tube clamped COMPARISON STUDY: Chest radiograph September 03, 2024 at 6:53 AM. FINDINGS: Right pleural catheter remains in place. There is a trace right apical pneumothorax. Cardio mediastinal silhouette is normal. Pulmonary vascularity is normal. There is no consolidation to sugge st pneumonia. IMPRESSION: Right pleural catheter in place. Trace right apical pneumothorax. ACT 112: Negative or not required by law. Electronically signed by: Gurdeep Long M.D. 09/03/2024 1:49 PM
[2024-09-03 15:20] VITALS: BP 115/76; PULSE 70; RESP 17; TEMP 98.6; O2SAT 97
--- NOTE | 2024-09-03 15:59 | Discharge Summary ---
Discharge Summary Date of Service September 03, 2024 Principal Dx & Hospital Course #1 = Principal Diagnosis (1) Pneumothorax: Patient with no significant PMHx - presented with dyspnea on exertion and chest pain x 4 days Etiology unclear CXR showed large right pneumothorax with associated right lung collapse and mild leftward mediastinal shift, RUL opacity with unclear etiology (pulm contusion vs infectious vs loculated effusion) Chest tube placed in ED by Dr. Davis - 10 cmH2O suction Consult pulmonology - Recommend outpatient chest CT to evaluate for congenital blebs or emphysema - Recommend outpatient PFTs and exhaled nitric oxide testing to rule out obstructive lung disease - Avoid strenuous activity for the next 4 weeks and avoid changes in barometric pressure Chest tube removed 09/[address] Davis Repeat CXR with resolved RUL opacity -- likely atelectasis; no antibiotics needed Stable on room air Recommend PCP follow-up within the week (2) Dyspnea: Secondary to above - Improving - see tx above (3) Current cannabis vaping on some days: Smokes cannabis 1-2 days per months Encourage smoking cessation Plan VTE PPx: SCDs CODE STATUS: Full code Notes For Next Care Provider Recommend repeat CXR within 1 week to ensure resolution of pneumothorax Recommend chest CT to evaluate for congenital blebs or emphysema Recommend outpatient PFTs and exhaled nitric oxide testing to rule out obstructive lung disease Avoid strenuous activity for the next 4 weeks Counseled on smoking cessation Medication Changes From Visit Tylenol and ibuprofen as needed for mild pain Admission HPI Per Admitting Provider Patient is a 34-year-old male with no significant past medical history. He presents today from urgent care due to an abnormal diagnostic test, CXR showing pneumothorax. He stated that since he has had fatigue, cough, dyspnea on exertion, dizziness, and feels like his "chest is on fire". He has been taking ibuprofen for the chest pain. He stated that the pain was on the right side and moved midsternally. He also had right arm numbness a few days ago, but that has since subsided. When he went to work today, he felt he could not do anything because the shortness of breath was so severe. The patient stated that he would have episodes of shortness of breath on exertion, which then caused him to have a cough and fatigue. He stated that his fiance and her child have both been diagnosed with pneumonia recently. Patient denies fevers, rhinorrhea, sore throat, abdominal pain, nausea, vomiting, diarrhea, constipation. He denies previous tobacco history, occasionally smokes cannabis 1-2 times per month. He denies previous pulmonary conditions, denies cystic fibrosis, asthma, COPD. He denies past history of DM, cancer, previous VTE, arrhythmias. He does not take any medications at home other than a daily multivitamin. He does not use oxygen at baseline. Admission Exam Per Admitting Provider The patient is awake, alert and oriented 3, well developed and well nourished, normocephalic and atraumatic, in no acute distress. Non-toxic appearing. HEENT- EOMI, mucous membranes moist. Hearing grossly intact. Heart- normal S1 and S2. No murmurs, rubs or gallops. Lungs- decreased bilaterally. Chest tube in place. No respiratory distress. 6L O2 via nasal canula. Abdomen- normal bowel sounds and soft. No ascites noted. Non-tender. Extremities- no clubbing, cyanosis, or edema. Rheumatologic- normal range of motion. Psychiatric- normal affect. Discharge Exam General: No acute distress, nondiaphoretic, well-developed, well-nourished. Skin: The skin was without rashes, erythema, edema, or bruising. Cardiac: Regular rate and rhythm without murmurs gallops or rubs. Pulm: Clear to auscultation bilaterally without wheezes, rales or rhonchi. No respiratory distress. Normal respiratory effort. 97% on room air. Occlusive dressing over right chest wall. Abdominal: Soft, nontender, nondistended. Bowel sounds present. Neuro: A&O x3. No focal neurological deficits. Discharge Plan Discharge Items Patient Disposition: Home - Self-Care Reason For Visit: PNEUMOTHORAX Discharge Diagnosis: Right-sided spontaneous pneumothorax Activity: As commented below Activity Comment: Avoid strenuous activity for the next 4 weeks Non-emergency contact: Primary Care Provider Call non-emergency contact if: you have any medication questions and your symptoms worsen Follow-up/Referrals: Zack Davis MD [Physician] - (Office will reach out to schedule a hospital follow up appointment. ) Jean Cantor DO [Physician] - 09/05/24 1:00 pm (Please arrive 15 minutes prior to scheduled appointment. Please take ID and insurance card to this appointment. If unable to keep this appointment please call and reschedule. Please schedule an establish care visit at this appointment. ) PCP,NO [Primary Care Provider] - Diet: Regular Addtl Attending Provider Instructions: Nikolas, You were admitted to the hospital with a pneumothorax. The pneumothorax is when air leaks out and gets trapped in the space between the lung and the chest wall (pleural space). It can cause complete or partial collapse of the lung. The tr apped air prevents the lung from reinflating. Spontaneous pneumothorax occurs when a weakened spot on the lung surface ("bleb") ruptures. It may occur in people with asthma or emphysema, or even in those with no pre-existing lung disease. The trapped air was removed with a tube (catheter) placed into the pleural space. Your chest tube was removed on 09/03/24. Upon discharge from the hospital: * Avoid strenuous activity for the next 4 weeks. * Avoid changes in barometric pressure including airplanes, scuba diving, or snorkeling. * Take Tylenol or Ibuprofen for pain control. These are available frer-[id number] (OTC), so no prescription is required. * Continue to use the incentive spirometer at home. Do this multiple times a day. Do this even though your chest may hurt when you breathe. It sends extra oxygen and blood to the lung. This is important to help keep the lung expanded. * Change the bandage to your chest wall as often as needed. Keep the bandage in place for 48 hours. Keep the bandage dry. * Until a scab has formed on the incision site, you may shower but not take a bath. When a scab has formed, you no longer need an adhesive bandage. After the incision has healed, you may have a small scar. * Follow-up with your PCP this week. Your appointment is scheduled for 09/05/24 at 1:00 PM. * Follow-up with pulmonology outpatient. They will perform additional testing to rule out an underlying lung disease. Their office will call you with your appointment details. * It is important to refrain from smoking! This includes both cigarettes and marijuana. Please return to the hospital if you experience any of the following: Breathing that gets more difficult, confusion, dizziness, difficulty arousing, fainting or loss of consciousness, fast heart rate, new pain in the chest/arm/shoulder/neck/or upper back, lips or skin look purple/blue/west in color, feeling of doom, or any other symptoms concerning for you. It was a pleasure taking care of you while you were in the hospital, Tomeka Briseno PA-C Pending Studies at Discharge: No Stand-Alone Forms: My [facility], Work/School Release, Smoking Cessation Medications and DC Order Prescriptions: Continued multivitamin [One A Day] Tablet 1 tab PO DAILY ibuprofen 200 mg Tablet 200 mg PO Q6H PRN (Reason: Pain/Fever) Discharge Orders: Discharge Order (Routine); Ordered 09/03/24 Ordered By: Tomeka Hobson/Other Patient Handouts: ED Pneumothorax, Spontaneous Admission Data Admit Date/Time: 09/02/24 17:47 Attending Provider: Rick Perales Admit Provider: Manuel Higgins Primary Care Provider: PCP,NO Other Providers: Zack Davis; Manuel Higgins Hospital Stay Data Consultations 09/02/24 17:19 Consult Pulmonology Stat 09/02/24 17:21 ED Decision to Admit Stat Diagnostic Imagining Performed Chest X-Ray 09/02/24 17:03 INDICATION: Chest tube. TECHNIQUE: Frontal radiograph of the chest. COMPARISON: None provided. FINDINGS/IMPRESSION: The cardiomediastinal silhouette and pulmonary vasculature appear within normal limits. Right upper lobe opacity. Subsegmental atelectasis in the left lower lobe. No pleural effusion. No acute osseous abnormality evident. Small right apical pneumothorax, less than 15 % volume. Right-sided chest tube overlies the right upper medial thorax. Electronically signed by Hector Beckford 09-02-2024 5:33 PM Chest X-Ray 09/02/24 17:46 INDICATION: Chest tube. TECHNIQUE: One view of the chest. COMPARISON: Radiograph from earlier today. FINDINGS/IMPRESSION: Right-sided chest tube overlies the right hemithorax. Near complete resolution of right pneumothorax. Improved aeration of right upper lobe opacity. Bilateral lower lobe subsegmental atelectasis. No pleural effusion. No acute fracture. Electronically signed by Hector Beckford 09-02-2024 6:17 PM Chest X-Ray 09/03/24 08:00 EXAM: XR chest 1V portable CLINICAL HISTORY: ptx tgb/kaa TECHNIQUE: An X-ray image of the chest is obtained in AP projection. COMPARISON: 09/02/2024. FINDINGS: Pulmonary Parenchyma: Lungs are clear bilaterally. No evidence of consolidation, collapse, or focal opacities. No pulmonary nodules are identified. Previously seen air space opacities the right mid zone are not visualized. A tube is seen overlying the right hemithorax, needs clinical correlation No evidence of pleural effusion or pleural thickening. Heart and Mediastinum: Heart size and shape are normal. No mediastinal widening or masses. No hilar or mediastinal lymphadenopathy. Bony Thorax: Bony thorax appears intact without fractures or deformities. Soft Tissues: Soft tissues overlying the chest wall are unremarkable. IMPRESSION: 1. No acute cardiopulmonary abnormalities are identified. 2. Previously seen air space opacities the right mid zone are not visualized in the current study. 3. Interval improvement. 4. A tube is seen overlying the right hemithorax and needs clinical correlation Electronically signed by Marvel Cardenas 09-03-2024 08:21 AM Chest X-Ray 09/03/24 12:00 XR chest 1V portable CLINICAL HISTORY: follow up, chest tube clamped COMPARISON STUDY: Chest radiograph September 03, 2024 at 6:53 AM. FINDINGS: Right pleural catheter remains in place. There is a trace right apical pneumothorax. Cardiomediastinal silhouette is normal. Pulmonary vascularity is normal. There is no consolidation to suggest pneumonia. IMPRESSION: Right pleural catheter in place. Trace right apical pneumothorax. ACT 112: Negative or not required by law. Electronically signed by: Gurdeep Long M.D. 09/03/2024 1:49 PM Pending Results Patient Have Any Pending Studies at Discharge: No Discharge Instructions Given to Patient (Per Discharging Provider) Nikolas, You were admitted to the hospital with a pneumothorax. The pneumothorax is when air leaks out and gets trapped in the space between the lung and the chest wall (pleural space). It can cause complete or partial collapse of the lung. The trapped air prevents the lung from reinflating. Spontaneous pneumothorax occurs when a weakened spot on the lung surface ("bleb") ruptures. It may occur in people with asthma or emphysema, or even in those with no pre-existing lung disease. The trapped air was removed with a tube (catheter) placed into the pleural space. Your chest tube was removed on 09/03/24. Upon discharge from the hospital: * Avoid strenuous activity for the next 4 weeks. * Avoid changes in barometric pressure including airplanes, scuba diving, or snorkeling. * Take Tylenol or Ibuprofen for pain control. These are available over-the- counter (OTC), so no prescription is required. * Continue to use the incentive spirometer at home. Do this multiple times a day. Do this even though your chest may hurt when you breathe. It sends extra oxygen and blood to the lung. This is important to help keep the lung expanded. * Change the bandage to your chest wall as often as needed. Keep the bandage in place for 48 hours. Keep the bandage dry. * Until a scab has formed on the incision site, you may shower but not take a bath. When a scab has formed, you no longer need an adhesive bandage. After the incision has healed, you may have a small scar. * Follow-up with your PCP this week. Your appointment is scheduled for 09/05/24 at 1:00 PM. * Follow-up with pulmonology outpatient. They will perform additional testing to rule out an underlying lung disease. Their office will call you with your appointment details. * It is important to refrain from smoking! This includes both cigarettes and marijuana. Please return to the hospital if you experience any of the following: Breathing that gets more difficult, confusion, dizziness, difficulty arousing, fainting or loss of consciousness, fast heart rate, new pain in the chest/a rm/shoulder/neck/or upper back, lips or skin look purple/blue/west in color, feeling of doom, or any other symptoms concerning for you. It was a pleasure taking care of you while you were in the hospital, Tomeka Briseno PA-C Total Time Total Time Spent Total Time Spent (In Minutes): Greater than 30 minutes spent completing this discharge process including direct patient care, medication reconciliation, documentation, review of labs and images, and coordination of care. Coding Level of Care Code 64104 INP/OBS DISCH >30 MIN Diagnoses Pneumothorax J93.9 Pneumothorax type: unspecified pneumothorax Dyspnea R06.00 Current cannabis vaping on some days F12.90
== END 2024-09-03 16:32 | disposition home or self-care (01) | DRG 201 ==
LOC: SUATTDRO → ED 15:32 → SUATTDRO 17:47 → 2S 17:47